=== PATIENT | male | born 1980 | race Caucasian/White ===

== ENCOUNTER → 2018-07-31 11:41 | Outpatient (CLI) | payer OTHER, SELFPAY ==
--- NOTE | 2018-07-31 | CA_ITS ---
PROCEDURE: INDICATIONS FOR THE TEST: Chest pain COPD Heart Murmur Tobacco Smoking+ Palpitations+ Fatigue+ Syncope+ Edema Hypertension Diabetes Mellitus Rheumatic Fever SOB+ERAZO+Obesity Hyperlipidemia Family History HD+ Additional History dizziness x 1 week, mother has afib, 2 syncopal episodes years ago PATIENT INFORMATION HEIGHT: 71 WEIGHT: 180 GENDER: Male B/P: 126/80 2-D/M-MODE INTERPRETATION: 2-D MEASUREMENTS OBSERVED VALUES IN CMS Right Ventricular Dimension (RVDd) 2.1 Interventricular Septum (Thickness)(IVsd) 0.8 Left Ventricular Internal Dimensions(LVIDd) 3.9 Left Ventricular Posterior Wall (Thickness)(LVPWd) 0.8 Aortic Root 3.1 Aortic Cusp Separation 2.3 Left Atrial Dimensions (LAD) 3.0 2D 1. Left atrium is normal size, left ventricle is normal size, there is no concentric left ventricular hypertrophy, visually estimated ejection fraction 55% with no regional wall motion abnormality. 2. The right atrium and right ventricle are normal size and contractility. 3. The aortic valve, mitral and tricuspid valve are grossly normal. 4. The pulmonic valve is poorly visualized. 5. No significant pericardial effusion noted. DOPPLER INTERROGATION: Doppler interrogation of the aortic, mitral and tricuspid valvular presence of mild mitral and tricuspid regurgitation, tricuspid regurgitation jet velocity is insufficient for calculation of the right ventricular systolic pressure, diastolic parameters are within normal range. CONCLUSION: 1. Normal left ventricular size, preserved left ventricular systolic function, visually estimated ejection fraction of 55% with no regional wall motion abnormality, diastolic parameters are within normal range. 2. Mild mitral and tricuspid regurgitation 3. No significant pericardial effusion noted.
[2018-07-31 12:15] LABS: Basophils # 0.1 K/mm3 (0-0.2); Basophils % 0.6 % (0.1-2.0); Eosinophils # 0.4 K/mm3 (0.0-0.4); Eosinophils % 4.4 % (0.1-12.0); Hematocrit 44.9 % (42.0-52.0); Hemoglobin 15.3 g/dL (14.1-18.0); Lymphocytes # 3.4 K/mm3 (0.7-4.5); Lymphocytes % 37.4 K/mm3 (10-50); Mean Corpuscular Hemoglobin 30.7 pg (27.0-31.2); Mean Corpuscular Volume 90.4 fl (80-94); Mean Platelet Volume 6.8 fl (7.4-10.4); Monocytes # 0.4 K/mm3 (0.1-1.0); Monocytes % 4.8 % (1.7-9.3); Neutrophils # 4.8 K/mm3 (1.8-7.8); Neutrophils % 52.8 % (37.0-80.0); Platelet Count 308 K/mm3 (142-424); Red Blood Count 4.97 M/mm3 (4.60-6.20); Red Cell Distribution Width 12.6 % (11.5-17.5); White Blood Count 9.1 K/mm3 (4.8-10.8)
[2018-07-31 12:39] LABS: Anion Gap 7.3 mEq/L (5-15); Blood Urea Nitrogen 13 mg/dL (7-18); Calcium 9.1 mg/dL (8.5-10.1); Carbon Dioxide 31 mmol/L (21.0-32.0); Chloride 106 mmol/L (98-107); Estimated Glomerular Filt Rate 85 ml/min (>60); Free Thyroxine Index 3.1 ug/dL (5.93-13.13); GFR (African American) 102 ML/MIN (>60); Glucose 75 mg/dL (74-106); Potassium 4.3 mmoL/L (3.5-5.1); Sodium 140 mmol/L (136-145); T4 (Thyroxine) 8.6 ug/dl (4.7-13.3); Thyroid Stimulating Hormone 1.34 uIU/ml (0.358-3.740); Triiodothryronine (T3) Uptake 36 % (31-39)
== END ==
PROVIDERS: Internal Medicine; Family Provider Physician Assistant; PCP Physician Assistant; Visit Provider Physician Assistant
DX: R00.2 Palpitations (principal); R42 Dizziness and giddiness; R06.00 Dyspnea, unspecified; F17.200 Nicotine dependence, unspecified, uncomplicated; Z82.49 Family history of ischemic heart disease and other diseases of the circulatory system
CPT/HCPCS: 36415; 80048; 84436; 84443; 84479; 85025; 93306

== ENCOUNTER → 2018-08-04 15:30 | Outpatient (CLI) | payer OTHER, SELFPAY | PROVIDERS: PCP Physician Assistant; Visit Provider Physician Assistant | DX: R00.2 Palpitations (principal); R06.00 Dyspnea, unspecified; R42 Dizziness and giddiness; F17.200 Nicotine dependence, unspecified, uncomplicated; Z82.49 Family history of ischemic heart disease and other diseases of the circulatory system | CPT/HCPCS: 93225 ==

== ENCOUNTER → 2020-03-28 08:27 | Outpatient (CLI) | payer OTHER, SELFPAY ==
--- NOTE | 2020-03-28 08:32 | XR_ITS ---
PROCEDURE: XR HAND RT MIN 3V CLINICAL INDICATION: Finger injury COMPARISON: XR HAND RT MIN 3V from 02/08/2020 FINDINGS: No the fracture of the terminal tuft of the distal phalanx 3rd finger is again noted the adjoining margins of the fracture appearing slightly sclerotic suggesting healing without complete fusion not unexpected with this type of fracture. There is less soft tissue swelling than seen on the previous study. IMPRESSION: Stable essentially healed nondisplaced fracture terminal tuft of the distal phalanx 3rd finger Dictated by: Dr. Yoavni Fernandez MD 03/28/2020 08:[address] Yovani Fernandez MD in [place] 03/28/2020 08:44
== END ==
PROVIDERS: PCP Physician Assistant; Visit Provider Orthopaedic Surgery
DX: S61.218A Laceration without foreign body of other finger without damage to nail, initial encounter (principal); S62.639A Displaced fracture of distal phalanx of unspecified finger, initial encounter for closed fracture; S67.10XA Crushing injury of unspecified finger(s), initial encounter
CPT/HCPCS: 73130

== ENCOUNTER → 2021-06-04 13:28 | Outpatient (CLI) | payer OTHER, SELFPAY ==
[2021-06-04 14:21] LABS: Alanine Aminotransferase 28 U/L (12-78); Albumin Level 4.9 g/dl (3.5-5.0); Albumin/Globulin Ratio 1.8 (1.1-1.8); Alkaline Phosphatase 76 U/L (38-126); Anion Gap 15.1 mEq/L (5-15); Aspartate Amino Transferase 35 U/L (17-59); Bilirubin,Total 0.6 mg/dl (0.2-1.3); Blood Urea Nitrogen 19 mg/dl (9-20); Calcium 9.6 mg/dl (8.4-10.2); Carbon Dioxide 28 mmol/L (22.0-30.0); Chloride 103 mmol/L (98-107); Chol/HDL Ratio 5.7 (1-3.5); Cholesterol 222 mg/dl (140-200); Estimated Glomerular Filt Rate 83 ml/min (>60); GFR (African American) 101 ML/MIN (>60); Globulin 2.7 g/dL (1.3-3.2); Glucose 93 mg/dl (74-100); HDL Cholesterol 39 mg/dl (40-60); Potassium 5.1 mmoL/L (3.5-5.1); Sodium 141 mmol/L (136-145); Total Protein,Serum 7.6 g/dl (6.3-8.2); Triglycerides 136 mg/dl (30-150); VLDL Cholesterol 27 mg/dL (0-40)
[2021-06-04 14:23] LABS: Basophils # 0.1 K/mm3 (0-0.2); Eosinophils # 0.3 K/mm3 (0.0-0.4); Eosinophils % 3.2 % (0.1-12.0); Hematocrit 45.7 % (42.0-52.0); Hemoglobin 15.7 g/dL (14.1-18.0); Lymphocytes # 2.9 K/mm3 (0.7-4.5); Lymphocytes % 30.4 % (10-50); Mean Corpuscular HGB Conc 34.2 g/dL (31.8-35.4); Mean Corpuscular Hemoglobin 30.2 pg (27.0-31.2); Mean Corpuscular Volume 88.3 fl (80-94); Mean Platelet Volume 8.5 fl (7.4-10.4); Monocytes # 0.6 K/mm3 (0.1-1.0); Monocytes % 6.2 % (1.7-9.3); Neutrophils # 5.7 K/mm3 (1.8-7.8); Neutrophils % 59.3 % (37.0-80.0); Platelet Count 322 K/mm3 (142-424); Red Blood Count 5.18 M/mm3 (4.60-6.20); Red Cell Distribution Width 13.2 % (11.5-17.5); White Blood Count 9.6 K/mm3 (4.8-10.8)
[2021-06-04 14:33] LABS: Direct LDL Cholesterol 150.67 mg/dL (100-129)
[2021-06-04 14:43] LABS: Free T4 (Free Thyroxine) 1.06 ng/dl (0.78-2.19)
[2021-06-04 14:51] LABS: Thyroid Stimulating Hormone 0.99 uIU/mL (0.465-4.68)
[2021-06-04 17:51] LABS: Erythrocyte Sedimentation Rate 5 mm/hr (0-15)
[2021-06-04 20:11] LABS: 25-OH Vitamin D, Total 47.4 ng/mL (30-100)
== END ==
PROVIDERS: Visit Provider Physician Assistant
DX: R51.9 Headache, unspecified (principal); R00.2 Palpitations; F17.200 Nicotine dependence, unspecified, uncomplicated
CPT/HCPCS: 80053; 80061; 82306; 84439; 84443; 85025; 85651

== ENCOUNTER 2025-03-11 13:59 | Outpatient (CLI) | payer BC, SELFPAY ==
[2025-03-11 16:28] LABS: Prostate Specific Ag Screen 0.4 ng/ml (0.0-4.0)
[2025-03-12 08:13] LABS: Estradiol 14.3 pg/mL (7.6-42.6); FSH 3.5 mIU/mL (1.5-12.4); LH 3.5 mIU/mL (1.7-8.6); Prolactin 6.5 ng/mL (3.9-22.7); Sex Hormone Binding Globulin 23.2 nmol/L (16.5-55.9); Testosterone,Total 292 ng/dL (264-916)
== END 2025-03-11 23:59 | disposition home or self-care (01) ==
LOC: LAB 14:00
PROVIDERS: PCP Physician Assistant; Visit Provider Urology
DX: E29.1 Testicular hypofunction (principal); R53.83 Other fatigue
CPT/HCPCS: 36415; 82626; 82670; 83001; 83002; 84146; 84270; 84403; G0103

== ENCOUNTER 2025-04-15 09:03 | Outpatient (CLI) | payer BC, SELFPAY ==
[2025-04-15 10:51] LABS: Basophils # 0.1 K/mm3 (0-0.2); Basophils % 0.8 % (0.1-2.0); Eosinophils # 0.2 Kmm3 (0.0-0.4); Hematocrit 44.3 % (42.0-52.0); Hemoglobin 14.8 g/dL (14.1-18.0); Immature Granulocytes # 0.01 10^3uL; Immature Granulocytes % 0.1 %; Lymphocytes # 2.6 K/mm3 (0.7-4.5); Mean Corpuscular HGB Conc 33.4 g/dL (31.8-35.4); Mean Corpuscular Hemoglobin 29.9 pg (27.0-31.2); Mean Corpuscular Volume 89.5 fl (80-94); Mean Platelet Volume 9.7 fl (7.4-10.4); Monocytes # 0.7 K/mm3 (0.1-1.0); Monocytes % 8.7 % (1.7-9.3); Neutrophils # 4.1 K/mm3 (1.8-7.8); Neutrophils % 53.4 % (37.0-80.0); Nucleated Red Blood Cells # 0 10^3/uL; Nucleated Red Blood Cells % 0 %; Platelet Count 302 K/mm3 (142-424); Red Blood Count 4.95 M/mm3 (4.60-6.20); Red Cell Distribution Width 11.9 % (11.5-17.5); Red Cell Distribution Width-SD 38.6 fL; White Blood Count 7.7 K/mm3 (4.8-10.8)
[2025-04-16 12:14] LABS: Sex Hormone Binding Globulin 22.7 nmol/L (16.5-55.9); Testosterone,Total 208 ng/dL (264-916)
== END 2025-04-15 23:59 | disposition home or self-care (01) ==
LOC: LAB 09:04
PROVIDERS: PCP Physician Assistant; Visit Provider Urology
DX: R53.83 Other fatigue (principal)
CPT/HCPCS: 36415; 84270; 84403; 85025

== ENCOUNTER 2025-05-13 09:20 | Outpatient (CLI) | payer BC, SELFPAY ==
[2025-05-13 10:02] LABS: Basophils # 0.1 K/mm3 (0-0.2); Basophils % 0.7 % (0.1-2.0); Eosinophils # 0.2 Kmm3 (0.0-0.4); Hematocrit 44.2 % (42.0-52.0); Hemoglobin 15.5 g/dL (14.1-18.0); Immature Granulocytes # 0.03 10^3uL; Immature Granulocytes % 0.3 %; Lymphocytes # 2.6 K/mm3 (0.7-4.5); Lymphocytes % 28.9 % (10-50); Mean Corpuscular HGB Conc 35.1 g/dL (31.8-35.4); Mean Corpuscular Hemoglobin 30.8 pg (27.0-31.2); Mean Corpuscular Volume 87.9 fl (80-94); Mean Platelet Volume 9.9 fl (7.4-10.4); Monocytes # 0.6 K/mm3 (0.1-1.0); Neutrophils # 5.4 K/mm3 (1.8-7.8); Neutrophils % 61.1 % (37.0-80.0); Nucleated Red Blood Cells # 0 10^3/uL; Nucleated Red Blood Cells % 0 %; Platelet Count 314 K/mm3 (142-424); Red Blood Count 5.03 M/mm3 (4.60-6.20); Red Cell Distribution Width 11.8 % (11.5-17.5); Red Cell Distribution Width-SD 37.7 fL; White Blood Count 8.9 K/mm3 (4.8-10.8)
--- NOTE | 2025-05-13 10:21 | US_ITS ---
FINAL REPORT TECHNIQUE: Limited sonographic imaging of the left shoulder soft tissues was obtained. CLINICAL HISTORY: LT SHOULDER/MASS-LUMO FINDINGS: There is a 4.5 x 1.3 cm, ovoid hypoechoic focus corresponding to clinical abnormality. This does not appear to be cystic. This does not clearly communicate with deep structures. IMPRESSION: Ovoid hypoechoic focus corresponding to clinical abnormality. Consider MRI with skin marker for further evaluation. Reviewed, Interpreted and Dictated by Sea Mack MD Transcribed by Leonora Gagnon Authenticated and [facility]
[2025-05-14 05:21] LABS: Sex Hormone Binding Globulin 23.1 nmol/L (16.5-55.9)
[2025-05-14 08:12] LABS: Testosterone,Total 237 ng/dL (264-916)
== END 2025-05-13 23:59 | disposition home or self-care (01) ==
LOC: LAB 09:20
PROVIDERS: PCP Physician Assistant; Visit Provider Urology
DX: N52.9 Male erectile dysfunction, unspecified (principal)
CPT/HCPCS: 76882; 84270; 84403; 85025

== ENCOUNTER 2025-05-21 15:44 | Outpatient (CLI) | payer BC, SELFPAY ==
--- OUTSIDE RECORDS SUMMARY | 2025-05-21 15:46 | XMS_ITS | Data Portability ---
Author Organization [facility] [place] [facility]OS[facility] Address [address] [place] [address] Assessment No assessment recorded. Plan of Treatment Reminders Order Date Submit Date Provider Last Modified By Organization Details Last Modified Time Details Appointments None recorded. Lab None recorded. Referral None recorded. Procedures None recorded. Surgeries None recorded. Imaging XR, shoulder, 2 or more view - Room 5 2018 019 [facility], [address] [place] [address] , [place], [address], 9 08:25:03 Medication Orders Medrol (Abdirahman) 4 mg tablets in a dose pack 2018 019 [facility] #[id number], [address] [address] [address], NAVYA Ortega, [id number], 9 16:46:15 Patient TargetsNo targets recorded. Patient Instructions Encounter Date Encounter Id Patient Instructions Last Modified By Organization Details Last Modified Time 05/16/2019 [id number] Patient reports pain in the right shoulder when he lifted a piece of steel. Somewhat better now, but still some discomfort wtih lifting. Pain deep along the biceps and pec insertion. Xrays today were negative for fracture or bony abnormality. Suspect muscle strain. We will get him started on a Medrol dosepack for inflammation. He is to return for f/u evaluation as needed. Hold on MRI for now. [email or web address] Not available 05/21/2019 18:29:32 Reason for Referral None Reported. Results Created Date Observation Date Name Description Value Unit Range Abnormal Flag Note LastModifiedBy Organization Detail LastModifiedTime 05/18/20 19 05/16/2019 XR, shoul natalia, 2 or more view [address] [place] [address] Patijay allan Name: ROVERTO allan : [birth year] 84 Constantin allan 89 Orderi ng Provid er: ROSA M JOHNSON EXAM DATE: 2018 EXAM: XR RT SHOULD ER COMPLE TE RADIOG RAPHIC VIEWS: 4 view right should er COMPAR MARTHA: None. HISTOR Y: Right should er pain FINDIN GS: Mild degene rative change s of the AC joint. No fractu re or disloc ation. No intrao sseous lesion is presen t. IMPRES EDWAR: Mild degene rative change s of the right should er Interp reted By: Hamlet Gamez MD Electr on ly Signed By: Hamlet Gamez MD on 05/18/20 8:[email or web address] [place] [address] [place], [address], 05/21/2019 18:28:54 Result Notes Documentation Provider Name and Address Organization Details Recorded Time Xr, Shoulder, 2 Or More View : [address] [place] [address] Patient Name: ROVERTO JACKSON Patient : 1980 Patient Ordering Provider: ROSA M JOHNSON EXAM DATE: 05/16/2019 EXAM: XR RT SHOULDER COMPLETE RADIOGRAPHIC VIEWS: 4 view right shoulder COMPARISON: None. HISTORY: Right shoulder pain FINDINGS: Mild degenerative changes of the AC joint. No fracture or dislocation. No intraosseous lesion is present. IMPRESSION: Mild degenerative changes of the right shoulder Interpreted By: Hamlet Gamez MD Chavez JOHNSON PA-C [address] [place], [address], [facility] 05/21/2019 18:28:54 Procedures Surgical History Date Name Laterality Status Provider Name and Address Organization Details Recorded Time Appendectomy completed Angel Dubsoe [facility] 05/16/2019 16:11:33 Imaging Results None recorded. Procedure Notes None recorded. Medical Equipment None Reported. Allergies No known drug allergies Medications Name Sig Start Date Stop Date Status Note LastModified by Organization Details LastModified Time Medrol (Abdirahman) 4 mg tablets in a dose pack Take as directe d. 019 active Not Available Not Available Not Avai lable naproxen active Not Available Not Avai lable Not Available Vitals Date Recorded Body height Body mass index (BMI) Body weight Provider Name and Address Organization Details Last Updated DateTime 05/16/2019 180.34 cm 24.4 kg/m2 58986.66 g Angel MENDOSA [facility] 05/16/2019 16:10:26 Social History Question Answer Notes LastModified by Organizat ion Details LastModified Time Tobacco Smoking Status Current Every Day Smoker Angel Dubose lazara [facility] 05/16/2019 16:11:16 What Was The Date Of Your Most Recent Tobacco Screening? 05/16/2019 Information n ot available 01/01/2020 How Much Tobacco Do You Smoke? 1 PPD [email or web address] Information not available 05/16/2019 Sex: Unknown Functional Status None recorded. Mental Status None recorded. Family History Relationship Description Onset Age of this Age Resolved Age Notes LastModified by Organization Details LastModified Time Mother Diabetes mellitus [email or web address] Not available 2018 16:11:08 Medical History Condition Response Allergies/Hayfever N Diabetes N Anxiety/Depression N Bleeding Disorder N Arthritis N Heart Conditions N Kidney Stones N Blood Clot N Tuberculosis N Cancer N COPD N Asthma N Blood Thinners N Sleep Apnea N High Cholesterol N Anesthesia Complications N Liver Disease N Heart Attack ([place]) N Hypertension N Kidney Disease N Past Encounters Encounter ID Performer Location Encounter Start Date Encounter Closed Date Diagnosis/Indication Diagnosis SNOMED-CT Code Diagnosis ICD10 Code Diagnosis Note [id number] R CINDY JOHNSON PA-C [facility] [address] [place] [address] 05/16/2019 15:56:00 05/16/2019 16:57:21 Pain of right shoulder joint [id number] M25.511 Health Concerns Section Related Observation LastModified by Organization Detai ls LastModified Time None Recorded Concern Status LastModified by Organization Details LastModified Time None Recorded Advance Directives Directive None Recorded Payers Insurance Date Sequence Insurance Name Policy Number Policy Chau Covered Member ID Chau Member ID Guarantor Name 05/22/2019 1 [employer] (POS) Roverto Ryan [id number] Roverto Jackson Notes Date Note Type Note Provider Name and Address Organization Details Recorded Time 05/16/2019 text/html 05-16-19 PCP:N/A SEEN FOR CONSULTATION AT THE REQUEST OF: BRENDA Mendez WHAT: Right Shoulder. WHERE: WHEN: 05-15-19 HOW:Lifting steel post, some popping and pain started to gradually get worse. SYMPTOMS:Patient reports of right AC joint pain, experiencing decreased ROM. PAIN: 5 /10 X-RAY: No MRI: No PT:No NSAIDS:Yes INJECTION:No R CINDY JOHNSON PA-C [address] [place], [address], [facility] 05/21/2019 18:31:06
--- NOTE | 2025-05-21 15:47 | MR_ITS ---
PROCEDURE INFORMATION: Exam: MR Left Upper Extremity Joint Without Contrast; Shoulder Exam date and time: 05/21/2025 4:19 PM Age: 45 years old Clinical indication: Mass or lump; Left shoulder mass where bb marker is , PT stated it has been there for 10 plus years , no pain; Additional info: Localizied swelling/mass and lump/lt shoulder TECHNIQUE: Imaging protocol: Magnetic resonance imaging of the left upper extremity without contrast. Exam focused on the shoulder. COMPARISON: US EXTREMITY LT LIMITED 05/13/2025 10:26 AM FINDINGS: Marked symptomatic area barely within [id number]. Barely visualized area of concern grossly unremarkable. Supraspinatus, infraspinatus, teres minor, subscapularis tendons and muscles grossly unremarkable. Visualized long head biceps tendon grossly unremarkable. Visualized glenoid labrum, labral biceps complex grossly unremarkable. No effusion. Normal bone marrow signal. Impression: Unremarkable study with area of concern inadequately imaged.
--- NOTE | 2025-05-21 15:50 | XR_ITS ---
FINAL REPORT CLINICAL HISTORY: r/o metal in eyes prior to mri FINDINGS: ORBITS Look up and look down views were obtained for MRI clearance. No radiopaque foreign body identified. IMPRESSION: No radiopaque foreign body. Reviewed, Interpreted and Dictated by Sea Mack MD Transcribed by Chandni Marsh Authenticated and [facility]
== END 2025-05-21 23:59 | disposition home or self-care (01) ==
PROVIDERS: PCP Physician Assistant; Visit Provider Physician Assistant
DX: R22.32 Localized swelling, mass and lump, left upper limb (principal)
CPT/HCPCS: 70200; 73221

== ENCOUNTER 2025-05-27 14:40 | Outpatient (CLI) | payer BC, SELFPAY ==
--- NOTE | 2025-05-27 14:43 | MR_ITS ---
PROCEDURE INFORMATION: Exam: MR Left Upper Extremity Joint Without Contrast; Shoulder Exam date and time: 05/27/2025 2:39 PM Age: 45 years old Clinical indication: Mass or lump; Shoulder; Left; Additional info: Mass marked by marker. Mass been present x 10 years. TECHNIQUE: Imaging protocol: Magnetic resonance imaging of the left upper extremity without contrast. Exam focused on the shoulder. COMPARISON: No relevant prior studies available. FINDINGS: Soft tissues: Increased T1 mass within the subcutaneous tissues left posterior upper back shoulder junction. Immediately superior to the posterior aspect of the trapezius muscle. Homogeneous fat saturation on the T2 weighted images. There are thin smooth internal septations without nodularity noted. Measures 7.2 cm medial-lateral dimension by 2.2 cm rostral caudal dimension by 1.7 cm AP dimension. IMPRESSION: Findings consistent with lipoma. There are thin internal septations but no nodularity. Recommend clinical follow-up. If patient develops pain or if there is perceived growth clinically, then recommend follow-up imaging with IV contrast. Otherwise no further imaging follow-up necessary
--- OUTSIDE RECORDS SUMMARY | 2025-05-27 14:43 | XMS_ITS | Data Portability ---
Author Organization [facility] - [place] [facility] [place] [facility]OS[facility] Address [address] [place] [address] Assessment No assessment recorded. Plan of Treatment Reminders Order Date Submit Date Provider Last Modified By Organization Details Last Modified Time Details Appointments None recorded. Lab None recorded. Referral None recorded. Procedures None recorded. Surgeries None recorded. Imaging XR, shoulder, 2 or more view - Room 5 2018 019 [facility], [address] [place] [address] , [place], [address], 9 08:25:03 Medication Orders Medrol (Abdirahman) 4 mg tablets in a dose pack 2018 019 [facility] #[id number], [address] [address] [address], NAVYA Ortega, [id number], 9 16:46:15 Patient TargetsNo targets recorded. Patient Instructions Encounter Date Encounter Id Patient Instructions Last Modified By Organization Details Last Modified Time 05/16/2019 [id number] Patient reports pain in the right shoulder [...] as needed. Hold on MRI for now. [email or web address] Not available 05/21/2019 18:29:32 Reason for Referral None Reported. Results Created Date Observation Date Name Description Value Unit Range Abnormal Flag Note LastModifiedBy Organization Detail LastModifiedTime 05/18/20 19 05/16/2019 XR, shoul natalia, 2 or more view [address] [place] [address] Patijay allan Name: ROVERTO allan : [birth year] [...] Hamlet Gamez MD on 05/18/20 8:[id number] [place] [address] [place], [address], 05/21/2019 18:28:54 Result Notes Documentation Provider Name and Address Organization Details Recorded Time Xr, Shoulder, 2 Or More View : [address] [place] [address] Patient Name: ROVERTO JACKSON Patient : 1980 [...] Gamez MD Chavez JOHNSON PA-C [address] [place], [address], [facility] 05/21/2019 18:28:54 Procedures Surgical History Date Name Laterality Status Provider Name and Address Organization Details Recorded Time Appendectomy completed Angel Dubose [facility] 05/16/2019 16:11:33 Imaging Results None [...] Updated DateTime 05/16/2019 180.34 cm 24.4 kg/m2 98007.66 g Angel MENDOSA [facility] 05/16/2019 16:10:26 Social History Question Answer Notes LastModified by Organizat ion Details LastModified Time Tobacco Smoking Status Current Every Day Smoker Angel Dubose lazara [facility] 05/16/2019 16:11:16 What Was The Date Of [...] available 2018 16:11:08 Medical History Condition Response Diabetes N Allergies/Hayfever N Anxiety/Depression N Bleeding Disorder N Arthritis N Kidney Stones N Heart Conditions N Blood Clot N Tuberculosis N Cancer N COPD N Asthma N Blood Thinners N Sleep Apnea N High Cholesterol N Anesthesia Complications N Liver Disease N Heart Attack ([place]) N Hypertension N Kidney Disease N Past Encounters Encounter ID Performer Location Encounter Start Date Encounter Closed Date Diagnosis/Indication Diagnosis SNOMED-CT Code Diagnosis ICD10 Code Diagnosis Note [id number] R CINDY JOHNSON PA-C [facility] [address] [place] [address] 05/16/2019 15:56:00 05/16/2019 16:57:21 Pain of right shoulder joint [id number] M25.511 Health Concerns Section Related Observation LastModified by Organization Detai ls LastModified Time None Recorded Concern Status LastModified by Organization Details LastModified Time None Recorded Advance Directives Directive None Recorded Payers Insurance Date Sequence Insurance Name Policy Number Policy Chau Covered Member ID Chau Member ID Guarantor Name 05/22/2019 1 [employer] (POS) Roverto Ryan [id number] Roverto Jackson Notes Date Note Type Note [...] NSAIDS:Yes INJECTION:No R CINDY JOHNSON PA-C [address] [place], [address], [facility] 05/21/2019 18:31:06
== END 2025-05-27 23:59 | disposition home or self-care (01) ==
LOC: RAD 14:41
PROVIDERS: PCP Physician Assistant; Visit Provider Physician Assistant
DX: R22.32 Localized swelling, mass and lump, left upper limb (principal)

== ENCOUNTER 2025-06-17 09:12 | Outpatient (CLI) | payer BC, SELFPAY ==
[2025-06-17 09:54] LABS: Hematocrit 43.2 % (42.0-52.0); Hemoglobin 14.9 g/dL (14.1-18.0); Immature Granulocytes % 0.3 %; Mean Corpuscular HGB Conc 34.5 g/dL (31.8-35.4); Mean Corpuscular Hemoglobin 31.0 pg (27.0-31.2); Mean Corpuscular Volume 89.8 fl (80-94); Nucleated Red Blood Cells % 0 %; Platelet Count 311 K/mm3 (142-424); Red Blood Count 4.81 M/mm3 (4.60-6.20); Red Cell Distribution Width-SD 41.1 fL; White Blood Count 7.0 K/mm3 (4.8-10.8)
[2025-06-18 08:12] LABS: Testosterone,Total 302 ng/dL (264-916)
== END 2025-06-17 23:59 | disposition home or self-care (01) ==
LOC: LAB 09:12
PROVIDERS: PCP Physician Assistant; Visit Provider Urology
DX: R68.82 Decreased libido (principal)
CPT/HCPCS: 36415; 84270; 84403; 85025

== ENCOUNTER 2025-09-16 08:45 | Outpatient (CLI) | payer BC, SELFPAY ==
--- OUTSIDE RECORDS SUMMARY | 2025-09-16 08:50 | XMS_ITS | Data Portability ---
Author Organization [facility] - [facility] [place] CLOS[facility] Address [address] [place] [address] Assessment No assessment recorded. Plan of Treatment Reminders Order Date Submit Date Provider Last Modified By Organization Details Last Modified Time Details Appointments None recorded. Lab None recorded. Referral None recorded. Procedures None recorded. Surgeries None recorded. Imaging XR, shoulder, 2 or more view - Room [address] [facility], [address] [place] [address] , [place], [address], 9 08:25:03 Medication Orders Medrol (Abdirahman) 4 mg tablets in a dose pack 2018 019 [facility] #[id number], [address] [address] [address], NAVYA Ortega, [id number], 9 16:46:15 Patient TargetsNo targets recorded. Patient Instructions Encounter Date Encounter Id Patient Instructions Last Modified By Organization Details Last Modified Time 05/16/2019 [id number] Patient reports pain in the right shoulder [...] as needed. Hold on MRI for now. [email or web address] Not available 05/21/2019 18:29:32 Reason for Referral None Reported. Results Created Date Observation Date Name Description Value Unit Range Abnormal Flag Note LastModifiedBy Organization Detail LastModifiedTime 05/18/20 19 05/16/2019 XR, shoul natalia, 2 or more view [address] [place] [address] Patijay allan Name: ROVERTO allan : [birth year] [...] Hamlet Gamez MD on 05/18/20 8:[id number] [place] [address] [place], [address], 05/21/2019 18:28:54 Result Notes Documentation Provider Name and Address Organization Details Recorded Time Xr, Shoulder, 2 Or More View : [address] [place] [address] Patient Name: ROVERTO JACKSON Patient : 1980 [...] Gamez MD Chavez JOHNSON PA-C [address] [place], [address], [facility] 05/21/2019 18:28:54 Procedures Surgical History Date Name Laterality Status Provider Name and Address Organization Details Recorded Time Appendectomy completed Angel Dubose [facility] 05/16/2019 16:11:33 Imaging Results [...] Updated DateTime 05/16/2019 180.34 cm 24.4 kg/m2 81195.66 g Angel MENDOSA [facility] 05/16/2019 16:10:26 Social History Question Answer Notes LastModified by Organizat ion Details LastModified Time Tobacco Smoking Status Current Every Day Smoker Angel Dubose lazara [facility] 05/16/2019 16:11:16 What Was The Date [...] History Condition Response Allergies/Hayfever N Diabetes N Bleeding Disorder N Anxiety/Depression N Arthritis N Heart Conditions N Kidney [...] Diagnosis SNOMED-CT Code Diagnosis ICD10 Code Diagnosis IMO Codes Diagnosis Note [id number] R CINDY JOHNSON PA-C [facility] [address] [place] [address] 05/16/2019 15:56:00 05/16/2019 16:57:21 Pain of right shoulder joint [id number] M25.511 Health Concerns Section Related Observation LastModified by Organization Detai ls LastModified Time None Recorded Concern Status LastModified by Organization Details LastModified Time None Recorded Advance Directives Directive None Recorded Payers Insurance Date Sequence Insurance Name Policy Number Policy Chau Covered Member ID Chau Member ID Guarantor Name 05/22/2019 1 [employer] (POS) Roverto Jackson [id number] Roverto Jackson Notes Date Note Type Note [...] NSAIDS:Yes INJECTION:No R CINDY JOHNSON PA-C [address] [place], [address], [facility] 05/21/2019 18:31:06
[2025-09-16 09:04] LABS: Hematocrit 46.9 % (42.0-52.0); Hemoglobin 16.1 g/dL (14.1-18.0); Immature Granulocytes % 0.1 %; Mean Corpuscular HGB Conc 34.3 g/dL (31.8-35.4); Mean Corpuscular Hemoglobin 30.4 pg (27.0-31.2); Mean Corpuscular Volume 88.5 fl (80-94); Nucleated Red Blood Cells % 0 %; Platelet Count 283 K/mm3 (142-424); Red Blood Count 5.30 M/mm3 (4.60-6.20); Red Cell Distribution Width-SD 38.4 fL; White Blood Count 8.2 K/mm3 (4.8-10.8)
[2025-09-17 09:23] LABS: Testosterone,Total 699 ng/dL (264-916)
== END 2025-09-16 23:59 | disposition home or self-care (01) ==
LOC: LAB 08:46
PROVIDERS: PCP Physician Assistant; Visit Provider Urology
DX: R53.83 Other fatigue (principal)
CPT/HCPCS: 36415; 84270; 84403; 85025